=== PATIENT | male | born 1995 | race Caucasian/White ===

== ENCOUNTER → 2016-09-01 | Outpatient (CLI) | payer OTHER ==
--- NOTE | 2016-09-03 13:12 | ECHO ---
DATE OF PROCEDURE: 09/01/2016 DATE OF : 1995 AGE: 21 REFERRING PROVIDER: Sarath Platt. PATIENT LOCATION: Outpatient. REASON FOR ECHOCARDIOGRAM: Sinus tachycardia. 2D MEASUREMENTS: IVS: 1.0 cm LV: 4.7 cm LVPW: 1.0 cm LA: 3.8 cm Aorta: 3.3 cm DOPPLER MEASUREMENTS: Peak velocity across the aortic valve: 1.2 m/s Peak velocity across the LVOT: 0.96 m/s Mitral E: 0.86 Mitral A: 0.39 Ratio 2.2 Maximum tricuspid valve velocity: 2.3 m/s 2D COMMENTS: 1. Normal left ventricular size, wall thickness and normal global left ventricular systolic function. The estimated global left ventricular systolic ejection fraction is 60% to 65%. 2. Normal left atrium. Normal right atrium and right ventricle. 3. The atrial septum appeared to be normal without evidence of defect or shunt. 4. Normal aortic root. 5. No pericardial effusion seen. 6. Normal aortic valve. Mildly calcified mitral annulus with normal anterior mitral valve leaflet motion. Normal tricuspid valve and pulmonic valve. The proximal pulmonary artery branches were not well visualized. 7. The inferior vena cava was not well visualized. DOPPLER: It detects trace mitral regurgitation and mild tricuspid regurgitation. The calculated pulmonary artery systolic pressure is about 30 mmHg. IMPRESSION: 1. Normal global left ventricular systolic and diastolic function. 2. Trace mitral regurgitation. 3. Mild tricuspid regurgitation with probably mild pulmonary hypertension. MTDD
== END ==
LOC: M CARPUL 09:13
PROVIDERS: ATTEND Internal Medicine
DX: R00.0 Tachycardia, unspecified (principal)